=== PATIENT | female | born 1945 | race Caucasian/White ===

== ENCOUNTER 2021-05-30 18:52 | Emergency (ER) | payer MEDICARE, SELFPAY ==
[~2021-05-30] VITALS: Ht 157.5 cm; Wt 59.0 kg
[2021-05-30 19:20] VITALS: BP_SYST 163
[2021-05-30] MEDS ORDERED: fentaNYL CITRATE/PF 100 MCG/2 ML AMP IVP ONE ×2 (20:15→23:00)
[2021-05-30 20:39] LABS: WHITE BLOOD COUNT (AUTO) 5.8 K/uL (4.8-10.8)
[2021-05-30 20:42] LABS: ANION GAP 4 (5-15); CHLORIDE 104 mmol/L (98-107); CREATININE 0.75 mg/dL (0.55-1.30); GLUCOSE 105 mg/dL (70-99); POTASSIUM 3.9 mmol/L (3.5-5.1); SODIUM SERUM 138 mmol/L (136-145); UREA NITROGEN, BLOOD 11 mg/dL (8-21)
[2021-05-30 20:43] LABS: BASOPHILS % (AUTO) 0.5 % (0.0-2.0); EOSINOPHILS # (AUTO) 0.1 K/uL (0.0-0.4); EOSINOPHILS % (AUTO) 0.9 % (0.0-4.0); HEMATOCRIT 37.5 % (36-48); HEMOGLOBIN 12.7 g/dL (12.0-16.0); LYMPHOCYTES # (AUTO) 0.9 K/uL (1.0-5.5); LYMPHOCYTES % (AUTO) 14.7 % (20.5-51.5); MEAN CORPUSCULAR HEMOGLOBIN 32 pg (27-31); MEAN CORPUSCULAR HGB CONC 34 % (32-36); MEAN CORPUSCULAR VOLUME 94 fL (79.0-98.0); MONOCYTES # (AUTO) 0.4 K/uL (0.0-1.0); MONOCYTES % (AUTO) 7.2 % (1.7-9.3); NEUTROPHILS # (AUTO) 4.5 K/uL (1.8-7.7); NEUTROPHILS % (AUTO) 76.7 % (40.0-70.0); PLATELET COUNT (AUTO) 179 K/uL (130-430); RED BLOOD CELL COUNT(AUTO) 3.99 MIL/uL (4.2-6.2); RED CELL DISTRIBUTION WIDTH 13.4 % (9.0-15.0)
[2021-05-30 20:48] LABS: ALANINE AMINOTRANSFERASE 23 U/L (12-78); ALBUMIN 3.5 g/dL (3.4-4.8); ASPARTATE AMINOTRANSFERASE 21 U/L (10-37); TOTAL BILIRUBIN 0.5 mg/dL (0.0-1.0)
--- NOTE | 2021-05-30 21:07 | NUR ---
ER Dr. Plaza at bedside examining patient.
--- NOTE | 2021-05-30 21:30 | NUR ---
Patient to ER bed 4 to gown for evaluation. Side rails up.
--- NOTE | 2021-05-30 21:45 | NUR ---
Pt c/o left hip pain s/p mech fall while walking to the bathroom. -LOC, -head trauma.
--- NOTE | 2021-05-30 23:00 | NUR ---
# 20 gauge angiocath placed to LAC. Use of asceptic technique. Opsite placed over site. Blood return noted. Flushed with 10 cc of normal saline. No evidence of infiltration noted. Patient tolerated well.
--- NOTE | 2021-05-31 00:15 | NUR ---
# 16 FR Barrera catheter with use of sterile technique. Immediate return of 30 cc YELLOW urine noted. Bedside drainage bag placed below level of bladder. Urine sample collected and sent to lab. Pt tolerated procedure WELL. Patient unable to toilet self D/T HIP FRACTURE.
--- NOTE | 2021-05-31 00:27 | NUR ---
REPORT GIVEN TO MAI DAS AT [facility]. [phone]
--- NOTE | 2021-05-31 01:00 | NUR ---
Patient resting quietly. No acute distress noted. VSS.
[2021-05-31 01:39] VITALS: BP_SYST 151
--- NOTE | 2021-05-31 01:39 | NUR ---
Patient to be transferred to [facility]. Is being transferred due to INSURANCE REQUEST. Receiving facility has accepting physician and available space. ER physician has signed transfer form. Patient or responsible libertarian has agreed to transfer and signed form. Patient belongings inventoried and will be sent with patient. Copy of nursing notes, lab reports, EKG, Physicians Orders and X-rays to be sent with patient. Report called to MAI DAS at receiving facility. Receiving physician is DR. HDZ.
== END 2021-05-31 01:39 | disposition short-term general hospital (02) ==
LOC: SED 18:52
DX: S72.012A Unspecified intracapsular fracture of left femur, initial encounter for closed fracture (principal); Z88.5 Allergy status to narcotic agent; Z20.822 Contact with and (suspected) exposure to COVID-19; Z79.899 Other long term (current) drug therapy; M97.02XA Periprosthetic fracture around internal prosthetic left hip joint, initial encounter; W18.39XA Other fall on same level, initial encounter; Y93.89 Activity, other specified; Y92.89 Other specified places as the place of occurrence of the external cause; Y99.8 Other external cause status
CPT/HCPCS: 36415; 71045; 72170; 73502; 80053; 83880; 84484; 85025; 87426; 93005; 96374; 96376; 99285; J3010